=== PATIENT | female | born 1970 | race Caucasian/White ===

== ENCOUNTER 2017-03-08 08:34 | Emergency (ER) | payer OTHER ==
[2017-03-08 08:42] VITALS: BP 110/67; PULSE 87; BMI 26.0
[2017-03-08] MEDS ORDERED: ONDANSETRON *ODT* 4 MG TABLET SL ONE (09:21)
[2017-03-08] MEDS ORDERED: ONDANSETRON *ODT* 4 MG TABLET ONE (09:26)
--- NOTE | 2017-03-08 10:07 | PDOC ---
History of Present Illness - General Chief Complaint: Injury Stated Complaint: FALL Time Seen by Provider: 03/08/17 09:15 History Source: Patient Exam Limitations: No Limitations - History of Present Illness Initial Comments: 03/08/17 10:02 46 yr female states she tripped and fell hit the left side of her head on a tool box this AM. NO LOC, pt feels nausea , mild headache. Pt had taken advil earlier this am for a headache. Pt denies dizzyness no changes in vision no blood thinners. Past History - Past Medical History Allergies/Adverse Reactions: Allergies Allergy/AdvReac Type Severity Reaction Status Date / Time codeine Allergy Intermediate headache, Verified 03/08/17 09:08 dizzy Home Medications: Ambulatory Orders Alprazolam [Xanax -] 1 mg PO DAILY 09/12/15 Escitalopram Oxalate [Lexapro -] 20 mg PO DAILY 09/12/15 Anemia: Yes Cancer: (?leukemia) Psychiatric Problems: Yes (ANXIETY & DEPRESSION) - Surgical History Abdominal Surgery: Yes - Immunization History Immunization Up to Date: Yes - Psycho/Social/Smoking Cessation Hx Anxiety: Yes Suicidal Ideation: No Smoking Status: No Smoking History: Never smoked Have you smoked in the past 12 months: No Number of Cigarettes Smoked Daily: 0 Cigars Per Day: 0 Information on smoking cessation initiated: No Hx Alcohol Use: No Drug/Substance Use Hx: No Substance Use Type: None Trauma Specific PMHX - Complaint Specific PMHX Arthritis: No Back Injury: No Neck Injury: No Review of Systems - Review of Systems Able to Perform ROS?: Yes Is the patient limited [place] proficient: No Constitutional: No: Symptoms Reported HEENTM: No: Symptoms Reported ABD/GI: Yes: Symptoms Reported, Nausea Integumentary: Yes: Other (left forehead at hairline with echymosis ) Neurological: Yes: Symptoms reported, Headache. No: Unsteady Gait, Ataxia, Dizziness *Physical Exam - Vital Signs Last Vital Signs Temp Pulse Resp BP Pulse Ox 87 20 110/67 97 03/08/17 08:37 03/08/17 08:37 03/08/17 08:37 03/08/17 08:37 - Physical Exam General Appearance: Yes: Nourished, Appropriately Dressed HEENT: positive: EOMI, MONSE, Normal ENT Inspection, TMs Normal, Pharynx Normal Neck: positive: Supple Respiratory/Chest: positive: Lungs Clear, Normal Breath Sounds Cardiovascular: positive: Regular Rhythm, Regular Rate Musculoskeletal: positive: Normal Inspection Extremity: positive: Normal Capillary Refill, Normal Inspection, Normal Range of Motion Integumentary: positive: Normal Color, Dry, Warm Neurologic: positive: Fully Oriented, Alert, Normal Mood/Affect, Normal Response , Motor Strength 11/11 ED Treatment Course - ADDITIONAL ORDERS Additional order review: Laboratory Results 03/08/17 09:28 Urine HCG, Qual Negative - RADIOLOGY Radiology Studies Ordered: Category Date Time Status HEAD CT WITHOUT CONTRAST [CT] Stat CT Scan 03/08/17 09:38 Ordered - Medications Given in the ED: ED Medications Discontinued Medications Generic Name Dose Route Start Last Admin Trade Name Freq PRN Reason Stop Dose Admin Ondansetron HCl 4 mg 03/08/17 09:21 03/08/17 09:28 Zofran Odt - SL 03/08/17 09:22 4 mg ONCE ONE Administration Progress Note - Progress Note Progress Note: ct head is negative, pt is reading on her phone no distress, no vomiting stable vitals dc home with her family head injury precautions have been verbally discussed, all questions asked and answered at discharge. Medical Decision Making - Medical Decision Making 03/08/17 15:06 cc: mechanical fall no loc heamtoma to left forehead at hair line no neck pain Aox3 with nausea no vomiting, steady gait no dizzyness will give zofran CT head *DC/Admit/Observation/Transfer Diagnosis at time of Disposition: Head trauma Qualifiers: Encounter type: initial encounter Qualified Code(s): S09.90XA - Unspecified injury of head, initial encounter - Discharge Dispostion Disposition: HOME Condition at time of disposition: Good - Referrals Referrals: Rita Wilde MD [Primary Care Provider] - - Patient Instructions Printed Discharge Instructions: DI for Closed Head Injury Additional Instructions: apply ice every 2hrs for 15 minutes to the area of swelling take tylenol NOT ADVIL for pain or headache eat and drink well today and get pleanty of rest avoid reading, texting watching TV if you are having nausea or headaches follow with your primary care doctor in 24-48hrs for a follow up visit return to ER for any worsening symptoms
== END 2017-03-08 10:43 | disposition home or self-care (01) ==
LOC: JERFT 08:34
DX: S00.83XA Contusion of other part of head, initial encounter (principal); W01.198A Fall on same level from slipping, tripping and stumbling with subsequent striking against other object, initial encounter; Y93.89 Activity, other specified; Y92.89 Other specified places as the place of occurrence of the external cause; Y99.8 Other external cause status
CPT/HCPCS: 70450-TC; 84703; 99281-25

== ENCOUNTER 2018-09-22 09:38 | Emergency (ER) | payer OTHER ==
[2018-09-22 09:46] VITALS: BMI 29.2
[2018-09-22] MEDS ORDERED: SODIUM CHLORIDE 1,000 ML IV ONE (10:19)
[2018-09-22] MEDS ORDERED: METOCLOPRAMIDE HCL INJECTION 10 MG/2 ML VIAL IVPB ONE (10:20)
[2018-09-22] MEDS ORDERED: METOCLOPRAMIDE HCL INJECTION 10 MG/2 ML VIAL ONE (10:37)
--- NOTE | 2018-09-22 11:06 | PDOC ---
History of Present Illness - General History Source: Patient Exam Limitations: No Limitations - History of Present Illness Initial Comments: 09/22/18 11:14 The patient is a 47 year old female, with a significant past medical history of bipolar disorder, anxiety and anemia, who presents to the ED complaining of lightheadedness, headache, nausea and vomited for the past 7 days. She reports taht she has had 3 vomiting episodes today, nonbilious and nonbloody. She describes her headache sa localized above her left eyebrow, ranging from mild to moderate. She notes that she has mild exacerbation of her symptoms from the light. She notes that she takes [place] [employer] for her bipolar disorder. She denies change in her dosage. The patient has been to the ED numerous times for similar symptoms. She had a Head MRI July 2016 that was normal. She had a CT scan of the head on February 2017 that was normal. She was last here on May 2017 for similar symptoms, discharged after improvement of symptoms (Given fluids and nausea meds). The patient denies chest pain, shortness of breath, fever, chills, diarrhea or constipation. Allergies: Codeine Past surgical history: None Social History: No alcohol, tobacco or drug use reported <Shon Brothers - Last Filed: 09/22/18 11:13> <Trent Fisher - Last Filed: 09/22/18 14:04> - General Chief Complaint: Lightheaded Stated Complaint: VOMITING Time Seen by Provider: 09/22/18 10:01 Past History <Shon Brothers - Last Filed: 09/22/18 11:13> - Past Medical History Anemia: Yes Cancer: (?leukemia) COPD: No Psychiatric Problems: Yes (ANXIETY & DEPRESSION, bipolar) - Surgical History Abdominal Surgery: Yes - Immunization History Immunization Up to Date: Yes - Suicide/Smoking/Psychosocial Hx Smoking Status: No Smoking History: Never smoked Have you smoked in the past 12 months: No Number of Cigarettes Smoked Daily: 0 Cigars Per Day: 0 Hx Alcohol Use: No Drug/Substance Use Hx: No Substance Use Type: None <Trent Fisher - Last Filed: 09/22/18 14:04> - Past Medical History Allergies/Adverse Reactions: Allergies Allergy/AdvReac Type Severity Reaction Status Date / Time codeine Allergy Intermediate headache, Verified 09/22/18 09:41 dizzy Home Medications: Ambulatory Orders Alprazolam [Xanax] 0.5 mg PO PRN 09/12/15 Fluoxetine HCl [Prozac] 60 mg PO DAILY 09/22/18 Lisdexamfetamine Dimesylate [Vyvanse] 40 mg PO DAILY 09/22/18 [place] Carbonate [Eskalith -] 300 mg PO BID 09/22/18 Review of Systems - Review of Systems Constitutional: No: Chills, Fever HEENTM: No: Recent change in vision, Double Vision Respiratory: No: Cough, Shortness of Breath Cardiac (ROS): No: Chest Pain ABD/GI: Yes: Nausea, Vomiting. No: Diarrhea : No: Dysuria Musculoskeletal: No: Back Pain Neurological: Yes: Headache. No: Numbness, Weakness, Ataxia All Other Systems: Reviewed and Negative <Trent Fisher - Last Filed: 09/22/18 14:04> *Physical Exam - Vital Signs Last Vital Signs Temp Pulse Resp BP Pulse Ox 98.7 F 94 H 18 117/66 99 09/22/18 09:42 09/22/18 09:42 09/22/18 09:42 09/22/18 09:42 09/22/18 09:42 - Physical Exam Comments: 09/22/18 11:14 GENERAL: The patient is awake, alert, and fully oriented, in no acute distress. HEAD: Normal with no signs of trauma. EYES: Pupils equal, round and reactive to light, extraocular movements intact, sclera anicteric, conjunctiva clear with no pallor. ENT: Ears normal, nares patent, oropharynx clear without exudates. Moist mucous membranes. NECK: Normal range of motion, supple without lymphadenopathy, JVD, or masses. LUNGS: Breath sounds equal, clear to auscultation bilaterally. No wheeze/ crackles. HEART: Regular rate and rhythm, normal S1 and S2 without murmur or rub. ABDOMEN: Soft/nontender/nondistended. BS wnl. No guarding or rebound. No palpable masses. No hepatosplenomegaly. EXTREMITIES: Normal range of motion, no edema. No clubbing or cyanosis. No cords, erythema, or tenderness. NEUROLOGICAL: Cranial nerves II through XII grossly intact. Normal speech, normal gait. PSYCH: Normal mood, normal affect. SKIN: Warm, Dry, normal turgor, no rashes or lesions noted. <Shon Brothers - Last Filed: 09/22/18 11:13> - Vital Signs Last Vital Signs Temp Pulse Resp BP Pulse Ox 98.7 F 94 H 18 117/66 99 09/22/18 09:42 09/22/18 09:42 09/22/18 09:42 09/22/18 09:42 09/22/18 09:42 <Trent Fisher - Last Filed: 09/22/18 14:04> Moderate Sedation - Procedure Monitoring Vital Signs: Procedure Monitoring Vital Signs Temperature 98.7 F 09/22/18 09:42 Pulse Rate 94 H 09/22/18 09:42 Respiratory Rate 18 09/22/18 09:42 Blood Pressure 117/66 09/22/18 09:42 O2 Sat by Pulse Oximetry (%) 99 09/22/18 09:42 <Shon Brothers - Last Filed: 09/22/18 11:13> - Procedure Monitoring Vital Signs: Procedure Monitoring Vital Signs Temperature 98.7 F 09/22/18 09:42 Pulse Rate 94 H 09/22/18 09:42 Respiratory Rate 18 09/22/18 09:42 Blood Pressure 117/66 09/22/18 09:42 O2 Sat by Pulse Oximetry (%) 99 09/22/18 09:42 <Trent Fisher - Last Filed: 09/22/18 14:04> ED Treatment Course - LABORATORY CBC & Chemistry Diagram: 09/22/18 10:33 09/22/18 11:01 - Medications Given in the ED: ED Medications Discontinued Medications Generic Name Dose Route Start Last Admin Trade Name Freq PRN Reason Stop Dose Admin Metoclopramide HCl 10 mg 09/22/18 10:20 09/22/18 11:01 Reglan Injection - IVPB 09/22/18 10:21 10 mg ONCE ONE Administration <Shon Brothers - Last Filed: 09/22/18 11:13> - LABORATORY CBC & Chemistry Diagram: 09/22/18 10:33 09/22/18 11:01 <Trent Fisher - Last Filed: 09/22/18 14:04> Medical Decision Making - Medical Decision Making 09/22/18 11:05 47-year-old female with history of bipolar disorder on lithium, history of primary headache syndrome possibly migraines presents with 1 week of left-sided headache with photophobia and episodes of lightheadedness/nausea. This morning, the patient actually had an episode of vomiting with her nausea so she presents for evaluation. No fevers or chills, no neck stiffness, no vision changes, no speech changes, no focal weakness or numbness. No cardiopulmonary complaints. Patient has had identical symptoms in the past, has been referred by her psychiatrist for lithium level testing. The last time she presented was in May 2017 with almost identical symptoms, her lithium level at that time was normal. She has had normal brain CT and MRI in this institution in 2017. Patient states she restarted her lithium about a month ago at the previous dosing. Overall, this seems more consistent with her primary and underlying headache syndrome, which is followed by neurology. Vitals are normal Patient is well-appearing with a normal neurological exam 47-year-old female with 1 week of headache/lightheadedness/nausea, no other red flags on history or physical exam. Presentation seems most consistent with primary headache syndrome, likely migraine. Less likely lithium toxicity given no change from baseline dosing and similar visits in the past with normal lithium levels. Check labs including lithium level EKG, IV fluids, Reglan No indication for emergent brain imaging today Reassess 09/22/18 12:51 labs wnl, no leukocytosis. [place] [employer] received and will be sent out. Only slight improvement with reglan/ivf, will trial toradol and reassess. Remains neuro intact. 09/22/18 14:02 Markedly improved/resolved after Toradol, sitting up smiling texting on her cell phone. Remains neurologically intact, feels well and wants to go home. Has seen Dr. Monroy of neurology in the past, will arrange follow-up with him. Understands return criteria. <Trent Fisher - Last Filed: 09/22/18 14:04> *DC/Admit/Observation/Transfer - Attestations Scribe Attestion: 09/22/18 11:14 Documentation prepared by Shon Brothers, acting as medical services manager for Trent Fisher MD <Shon Brothers - Last Filed: 09/22/18 11:13> <NataliaTrent - Last Filed: 09/22/18 14:04> Diagnosis at time of Disposition: Headache Qualifiers: Headache type: unspecified Headache chronicity pattern: chronic headache Intractability: not intractable Qualified Code(s): R51 - Headache - Discharge Dispostion Disposition: HOME Condition at time of disposition: Improved - Referrals Referrals: Reilly Monroy MD [Staff Physician] - - Patient Instructions Printed Discharge Instructions: DI for Headache Additional Instructions: Activity as tolerated. Stay hydrated. Tylenol 1000 mg every 8 hours and/or ibuprofen 600 mg every 8 hours as needed for pain. Continue your medications as previously prescribed by your physician. You should follow up with your primary doctor and Dr. Monroy as soon as possible regarding today's emergency department visit. Return to the emergency department for any new or concerning symptoms, particularly persistent or worsening headache, persistent vomiting or dehydration, any vision/speech/strength change, fevers or chills.
[2018-09-22 11:23] LABS: BASO % 0.4 % (0-2.0); EOS % 1.5 % (0-4.5); HEMATOCRIT 38.3 % (32.4-45.2); HEMOGLOBIN 13.2 GM/dL (10.7-15.3); LYMPH % 17.4 % (8-40); MCH 28.1 pg (25.7-33.7); MCHC 34.3 g/dl (32.0-36.0); MEAN CELL VOLUME 81.7 fl (80-96); MEAN PLT VOLUME 7.4 fl (7.5-11.1); NEUT % 76.7 % (42.8-82.8); PLATELET COUNT 178 K/MM3 (134-434); RBC 4.69 M/mm3 (3.60-5.2); RDW 14.1 % (11.6-15.6)
[2018-09-22 11:54] LABS: ALBUMIN 4.2 g/dl (3.4-5.0); ALK PHOS 82 U/L (45-117); ANION GAP 7 MMOL/L (8-16); BILIRUBIN,TOTAL 0.4 mg/dL (0.2-1); BLOOD UREA NITROGEN 18 mg/dL (7-18); CALCIUM 8.8 mg/dL (8.5-10.1); CHLORIDE 109 mmol/L (98-107); CO2 26 mmol/L (21-32); CREATININE 0.8 mg/dL (0.55-1.3); GLUCOSE,RANDOM 97 mg/dL (74-106); MAGNESIUM 2.1 mg/dL (1.8-2.4); POTASSIUM 4.1 mmol/L (3.5-5.1); SGOT/AST 13 U/L (15-37); SGPT/ALT 19 U/L (13-61); SODIUM 142 mmol/L (136-145); TOT PROT 8.3 g/dl (6.4-8.2)
[2018-09-22] MEDS ORDERED: KETOROLAC TROMETHAMINE 30 MG/1 ML VIAL IVPUSH ONE (12:43)
[2018-09-22] MEDS ORDERED: KETOROLAC TROMETHAMINE 30 MG/1 ML VIAL ONE (12:45)
[2018-09-22 14:25] VITALS: BP 115/52; PULSE 65; TEMP 98.2
== END 2018-09-22 14:25 | disposition home or self-care (01) ==
LOC: JER 09:38
PROC: 3E033GC Introduction of Other Therapeutic Substance into Peripheral Vein, Percutaneous Approach (ICD-10-PCS; principal; 2018-09-22)
PROC: 3E0333Z Introduction of Anti-inflammatory into Peripheral Vein, Percutaneous Approach (ICD-10-PCS; 2018-09-22)
DX: G44.89 Other headache syndrome (principal); D64.9 Anemia, unspecified; F41.8 Other specified anxiety disorders; F31.9 Bipolar disorder, unspecified
CPT/HCPCS: 36415; 80053; 80178; 82550; 83735; 84484; 85025; 99283-25; J7030

== ENCOUNTER 2020-07-05 10:42 | Emergency (ER) | payer OTHER | END 2020-07-05 12:11 | disposition home or self-care (01) | LOC: JVIRT 10:42 | DX: Z11.59 Encounter for screening for other viral diseases (principal) | CPT/HCPCS: C9803; Q3014-GT; U0003 ==

== ENCOUNTER 2020-07-24 08:40 | Emergency (ER) | payer OTHER ==
[2020-07-24 08:57] VITALS: BP 113/64; PULSE 94; TEMP 98.3; BMI 30.9
[2020-07-24] MEDS ORDERED: ACETAMINOPHEN 500 MG TABLET (FP) PO ONE (10:09)
[2020-07-24 10:21] LABS: BASO % 0.9 % (0-2.0); EOS % 1.2 % (0-4.5); HEMATOCRIT 35.3 % (32.4-45.2); HEMOGLOBIN 11.7 GM/dl (10.7-15.3); LYMPH % 18.9 % (8-40); MCH 27.1 pg (25.7-33.7); MCHC 33.1 g/dl (32.0-36.0); MONO % 5.5 % (3.8-10.2); NEUT % 73.5 % (42.8-82.8); PLATELET COUNT 166 K/MM3 (134-434); RBC 4.31 M/mm3 (3.60-5.2); RDW 12.6 % (11.6-15.6); WHITE BLOOD COUNT 5.3 K/mm3 (4.0-10.8)
[2020-07-24] MEDS ORDERED: ACETAMINOPHEN 500 MG TABLET (FP) ONE (10:21)
[2020-07-24 10:46] LABS: ALBUMIN 3.9 g/dl (3.4-5.0); BILIRUBIN,TOTAL 0.7 mg/dl (0.2-1); CALCIUM 8.8 mg/dl (8.5-10); CREATININE 0.7 mg/dl (0.55-1.3); TOT PROT 7.2 g/dl (6.4-8.2)
== END 2020-07-24 11:21 | disposition home or self-care (01) ==
LOC: FER 08:40
DX: R55 Syncope and collapse (principal); S09.90XA Unspecified injury of head, initial encounter; R51.9 Headache, unspecified
CPT/HCPCS: 36415; 70450-TC; 80053; 82550; 84484; 85025; 93005; 99285-25

== ENCOUNTER 2021-02-27 10:59 | Emergency (ER) | payer OTHER ==
[2021-02-27 11:06] VITALS: BP 138/70; PULSE 94; TEMP 98.2; BMI 29.5
[2021-02-27] MEDS ORDERED: SODIUM CHLORIDE 1,000 ML IV STA (11:20)
[2021-02-27] MEDS ORDERED: ONDANSETRON 4 MG/2 ML VIAL IVPB ONE (11:28)
[2021-02-27] MEDS ORDERED: ONDANSETRON 4 MG/2 ML VIAL ONE (11:29)
[2021-02-27 11:53] LABS: BASO % 0.6 % (0-2.0); HEMATOCRIT 37.4 % (32.4-45.2); HEMOGLOBIN 12.2 GM/dl (10.7-15.3); LYMPH % 16.1 % (8-40); MCH 26.8 pg (25.7-33.7); MCHC 32.8 g/dl (32.0-36.0); MEAN CELL VOLUME 81.8 fl (80-96); MEAN PLT VOLUME 7.5 fl (7.5-11.1); NEUT % 77.3 % (42.8-82.8); PLATELET COUNT 163 10^3/uL (134-434); RBC 4.57 M/mm3 (3.60-5.2); RDW 12.9 % (11.6-15.6); WHITE BLOOD COUNT 6.4 K/mm3 (4.0-10.8)
[2021-02-27 12:00] LABS: ALBUMIN 4.3 g/dl (3.4-5.0); BILIRUBIN,TOTAL 0.6 mg/dl (0.2-1); CREATININE 0.7 mg/dl (0.55-1.3); TOT PROT 7.7 g/dl (6.4-8.2)
[2021-02-27 12:37] LABS: EPITHELIAL CELLS FEW /hpf
== END 2021-02-27 14:21 | disposition home or self-care (01) ==
LOC: FER 10:59
PROC: 3E033GC Introduction of Other Therapeutic Substance into Peripheral Vein, Percutaneous Approach (ICD-10-PCS; principal; 2021-02-27)
DX: R10.31 Right lower quadrant pain (principal)
CPT/HCPCS: 36415; 74177-TC; 80053; 81003; 81015; 83690; 85025; 87086; 99285-25; Q9967

== ENCOUNTER 2022-02-15 12:24 | Emergency (ER) | payer OTHER ==
[2022-02-15 12:36] VITALS: BP 140/80; PULSE 87; RESP 20; TEMP 98.5; BMI 31.8
[2022-02-15 13:52] LABS: HEMATOCRIT 36.8 % (32.4-45.2); HEMOGLOBIN 13.2 G/dL (10.7-15.3); MCH 28.2 pg (25.7-33.7); MCHC 35.8 g/dl (32.0-36.0); MEAN CELL VOLUME 78.9 fl (80-96); MEAN PLT VOLUME 7.3 fl (7.5-11.1); PLATELET COUNT 161.6 10^3/uL (134-434); RBC 4.67 10^6/uL (3.60-5.2); RDW 15.2 % (11.6-15.6); WHITE BLOOD COUNT 7.4 10^3/uL (4.0-10.8)
[2022-02-15 14:09] LABS: ALBUMIN 4.3 g/dl (3.4-5.0); BILIRUBIN,TOTAL 0.4 mg/dl (0.2-1); CALCIUM 9.5 mg/dl (8.5-10); CREATININE 0.8 mg/dl (0.55-1.3); TOT PROT 7.9 g/dl (6.4-8.2)
[2022-02-15 15:36] LABS: N-TERMINAL BNP 210.2 pg/ml (5-125)
[2022-02-15 16:03] LABS: EPITHELIAL CELLS MODERATE /hpf
== END 2022-02-15 16:01 | disposition home or self-care (01) ==
LOC: FER 12:24
DX: R60.9 Edema, unspecified (principal); R00.2 Palpitations
CPT/HCPCS: 36415; 71046-TC-FY; 80053; 81003; 81015; 83880; 84443; 84484; 85027; 93005; 99285-25

== ENCOUNTER 2022-04-03 19:42 | Emergency (ER) | payer OTHER ==
[2022-04-03] MEDS ORDERED: AZITHROMYCIN 500 MG TABLET PO ONE (19:50)
[2022-04-03] MEDS ORDERED: AZITHROMYCIN 250 MG TABLET ONE (19:55)
[2022-04-03 20:03] VITALS: BP 129/79; PULSE 87; RESP 18; TEMP 98.6; BMI 31.8
== END 2022-04-03 20:01 | disposition home or self-care (01) ==
LOC: FER 19:42
DX: R05.1 Acute cough (principal); R09.81 Nasal congestion
CPT/HCPCS: 99283-25

== ENCOUNTER 2022-05-31 10:50 | Emergency (ER) | payer OTHER ==
[2022-05-31 11:05] VITALS: RESP 18; BMI 30.4
[2022-05-31] MEDS ORDERED: ACETAMINOPHEN 1000 MG/100 ML BAG IVPB ONE (11:49)
[2022-05-31] MEDS ORDERED: ACETAMINOPHEN INJECTION 100 ML IVPB ONE (12:07)
[2022-05-31 12:26] LABS: HEMOGLOBIN 12.8 G/dL (10.7-15.3); MCH 27.8 pg (25.7-33.7); MCHC 34.5 g/dl (32.0-36.0); MEAN CELL VOLUME 80.7 fl (80-96); MEAN PLT VOLUME 7.5 fl (7.5-11.1); PLATELET COUNT 145.2 10^3/uL (134-434); RBC 4.59 10^6/uL (3.60-5.2); RDW 14.8 % (11.6-15.6)
[2022-05-31 13:15] LABS: PLATELET ESTIMATE ADEQUATE
[2022-05-31 13:24] LABS: ALBUMIN 3.9 g/dl (3.4-5.0); ALK PHOS 74 U/L (45-117); ANION GAP 6 MMOL/L (8-16); BILIRUBIN,TOTAL 0.6 mg/dl (0.2-1); CALCIUM 8.6 mg/dl (8.5-10); CHLORIDE 107 mmol/L (98-107); CO2 25 mmol/L (21-32); CREATININE 0.7 mg/dl (0.55-1.3); GLUCOSE,RANDOM 97 mg/dl (74-106); SGOT/AST 18 U/L (15-37); SGPT/ALT 17 U/L (13-61); SODIUM 138 mmol/L (136-145); TOT PROT 7.5 g/dl (6.4-8.2)
[2022-05-31 13:52] VITALS: BP 122/66; PULSE 86; TEMP 98.9
== END 2022-05-31 13:56 | disposition home or self-care (01) ==
LOC: FER 10:50
PROC: 3E0333Z Introduction of Anti-inflammatory into Peripheral Vein, Percutaneous Approach (ICD-10-PCS; principal; 2022-05-31)
DX: U07.1 COVID-19 (principal)
CPT/HCPCS: 36415; 71045-TC-FY; 80053; 84484; 85025; 93005; 99285-25

== ENCOUNTER 2024-01-08 07:47 | Emergency (ER) | payer OTHER ==
[2024-01-08 07:58] VITALS: BP 122/78; PULSE 94; RESP 18; TEMP 98.2; BMI 28.3
== END 2024-01-08 09:02 | disposition home or self-care (01) ==
LOC: FER 07:47
DX: R05.9 Cough, unspecified (principal); R50.9 Fever, unspecified; R51.9 Headache, unspecified; R53.1 Weakness; Z20.822 Contact with and (suspected) exposure to COVID-19
CPT/HCPCS: 0241U-QW; 99283-25